=== PATIENT | male | born 1980 | race Caucasian/White ===

== ENCOUNTER 2018-02-06 20:09 | Emergency (ER) | payer BC, OTHER ==
--- NOTE | 2018-02-06 21:04 | ED ---
Upper Extremity Pain - HPI Summary HPI Summary: 37 yr old male with the complaint of left thumb pain. Onset of pain was two weeks ago when he jammed his thumb falling on the ice and hit it head on. He had pain and bruising over the distal left thumb. Tonight his putter hit his left thumb when putting it in the golf bag. Pain is moderate. No other complaints. - History of Current Complaint Chief Complaint: UCUpperExtremity Stated Complaint: LEFT THUMB PAIN Time Seen by Provider: 02/06/18 20:35 - Allergies/Home Medications Allergies/Adverse Reactions: Allergies Allergy/AdvReac Type Severity Reaction Status Date / Time No Known Allergies Allergy Verified 02/06/18 20:30 Home Medications: Home Medications NK [No Home Medications Reported] 02/06/18 [History Confirmed 02/06/18] PMH/Surg Hx/FS Hx/Imm Hx Infectious Disease History: No Infectious Disease History: Denies: Traveled Outside the [place] in Last 30 Days - Family History Known Family History: Positive: None - Social History Occupation: Employed Full-time Lives: With Family Alcohol Use: Daily Alcohol Amount: 1-2 DRINKS/DAY Substance Use Type: Reports: None Smoking Status (MU): Never Smoked Tobacco Review of Systems Positive: Other - thumb pain All Other Systems Reviewed And Are Negative: Yes Physical Exam Triage Information Reviewed: Yes Vital Signs On Initial Exam: Initial Vitals Temp Pulse Resp BP Pulse Ox 98.3 F 67 16 129/80 99 02/06/18 20:30 02/06/18 20:30 02/06/18 20:30 02/06/18 20:30 02/06/18 20:30 Vital Signs Reviewed: Yes Appearance: Positive: Well-Appearing, No Pain Distress Skin: Positive: Warm, Skin Color Reflects Adequate Perfusion Head/Face: Positive: Normal Head/Face Inspection Eyes: Positive: EOMI ENT: Positive: Normal ENT inspection Respiratory/Lung Sounds: Positive: Clear to Auscultation, Breath Sounds Present , Other - normal effort Cardiovascular: Positive: RRR, Pulses are Symmetrical in both Upper and Lower Extremities - left wrist normal pulse.. Negative: Murmur Abdomen Description: Negative: Distended Musculoskeletal: Positive: Other - left thumb is without bruising, no deformity , but he does have tenderness over the left distal phalynx of the thumb. ROM is intact left thumb. No tenderness at the base of the thumb. Neurological: Positive: Sensory/Motor Intact, Alert, Oriented to Person Place, Time, CN Intact II-III Psychiatric: Positive: Normal AVPU Assessment: Alert - Slade Coma Scale Best Eye Response: 4 - Spontaneous Best Motor Response: 6 - Obeys Commands Best Verbal Response: 5 - Oriented Coma Scale Total: 15 Procedures - Splinting Location: left thum Pre-Made Type: metal Splint: foam metal volar and dorsal wrap around splint applied Pre-Proc Neuro Vasc Exam: normal Post-Proc Neuro Vasc Exam: normal Diagnostics - Vital Signs Vital Signs Temp Pulse Resp BP Pulse Ox 02/06/18 20:30 98.3 F 67 16 129/80 99 - Laboratory Lab Statement: Any lab studies that have been ordered have been reviewed, and results considered in the medical decision making process. - Radiology left thumb Xray Interpretation: Positive (See Comments) - fracture thumb distal phalynx impacted. Radiology Interpretation Completed By: Radiologist Course/Dx - Course Course Of Treatment: 37 yr old male with thumb pain, fracture distal phalynx. Plan foam metal splint applied to thumb. Follow up with ortho. - Diagnoses Provider Diagnoses: Fracture of thumb, closed, Impacted fracture Discharge - Sign-Out/Discharge Documenting (check all that apply): Discharge/Admit/Transfer - Discharge Plan Condition: Good Disposition: HOME Patient Education Materials: Thumb Fracture (ED) Referrals: No Primary Care Phys,NOPCP [Primary Care Provider] - Simone Sanchez MD [Medical Doctor] - 1 Day - Billing Disposition and Condition Condition: GOOD Disposition: HOME
--- NOTE | 2018-02-06 21:15 | RAD ---
Indication: LEFT thumb pain following jamming injury 2 weeks ago. Tenderness at the IP joint. Comparison: No relevant prior exams available on the [facility] [place] [facility] [place]. Technique: AP, lateral, and oblique views LEFT thumb. REPORT AND IMPRESSION: Minimally impacted fracture at the base of the distal phalanx with suggestion of intra-articular extension. Negative for significant articular surface discontinuity or incongruity. Soft tissue swelling most prominent at the IP joint and distal.
== END 2018-02-06 21:54 | disposition home or self-care (01) ==
LOC: UCCORT 20:09
DX: S62.525A Nondisplaced fracture of distal phalanx of left thumb, initial encounter for closed fracture (principal); W23.0XXA Caught, crushed, jammed, or pinched between moving objects, initial encounter; Y93.9 Activity, unspecified; Y92.9 Unspecified place or not applicable
CPT/HCPCS: 99201; G0463

== ENCOUNTER 2018-02-22 19:48 | Emergency (ER) | payer OTHER ==
[2018-02-22] MEDS ORDERED: Lidocaine 1%* 5 ML VIAL INJ ONE (19:58)
--- NOTE | 2018-02-22 20:00 | UC ---
Laceration HPI - HPI Summary HPI Summary: Patient presents with a laceration to the base of his great toe on the sole of his foot. Patient was helping a friend outside. Patient was in bare feet when he stepped on a tool used to Mill concrete. Patient states he washed with water and bandaged prior to coming. Patient without any other concerns. Patient states initially pain was vital he had a temperature currently 1 out of 10. No paresthesias. Not renal compromise. Patient does not know his last tetanus was. No analgesic taken prior to arrival Medications medications reviewed this visit - History Of Current Complaint Stated Complaint: LEFT FOOT LACERATION Time Seen by Provider: 02/22/18 19:57 Hx Obtained From: Patient Laceration Location: Foot Mechanism Of Injury: Sharp Trauma Onset/Duration: Sudden Onset Severity: Mild Pain Scale Used: 0-10 Numeric - Allergies/Home Medications Allergies/Adverse Reactions: Allergies Allergy/AdvReac Type Severity Reaction Status Date / Time No Known Allergies Allergy Verified 02/06/18 20:30 Home Medications: Home Medications Cetirizine* [ZyrTEC 10 MG TAB*] 10 mg PO DAILY 02/22/18 [History Confirmed 02/22] PMH/Surg Hx/FS Hx/Imm Hx Previously Healthy: Yes - Surgical History Surgical History: None - Family History Known Family History: Positive: None - Social History Occupation: Employed Full-time Lives: With Family Alcohol Use: Daily Alcohol Amount: 1-2 DRINKS/DAY Substance Use Type: None Smoking Status (MU): Never Smoked Tobacco Review of Systems Constitutional: Negative Skin: Other - Laceration All Other Systems Reviewed And Are Negative: Yes Physical Exam - Summary Physical Exam Summary: Vital Signs Reviewed: Yes A+Ox3, no distress Eyes: Conjunctiva Clear ENT: Hearing grossly normal neck: supple Respiratory: Positive: No respiratory distress, No accessory muscle use Cardiovascular: skin color reflect adequate perfusion Musculoskeletal Exam: QUILES x 4 without difficulty + great toe extension Neurological: Positive: Alert, + gross sensation throughout Psychological: Positive: Normal Response To Family Skin: Positive: no rash, no ecchymosis pt with 2cm laceration sole of foot over ball of foot base of great toe Triage Information Reviewed: Yes Laceration Repair - Laceration Repair 1 Procedure Summary: Verbal consent given for repair Time out conducted with nurse in the room Area prepped in sterile fashion Patient tolerated well Sudden symptoms infection patient Reviewed wound care with patient Strict return precautions discussed Description: Linear Laceration Size After Repair: Length (cm) - 2 Modified For Repair: No Type Injection: Local Anesthesia Used: 1.0% Lido - 2.5ml Cleansing Completed Via Routine Prep: Yes Irrigation With Pressure Irrigation Device: Yes Closure Material: Sutures - 500ml irrigation with pressure device simple interrupted good approximation 3 simple interrupted Suture Of: Skin Suture Type: Nylon - 50 Laceration Course/Dx - Course/Dx Course Of Treatment: Patient presents with 2 cm laceration to the sole left foot over the ball after stepping on a construction total outside. Wound copiously irrigated. 3 simple interrupted sutures placed patient tolerated well. Reviewed wound care, signs and symptoms of infection. Given tetanus. Started on Keflex. Crutches - Differential Dx - Laceration/Wound Provider Diagnoses: Laceration left foot. Tetanus booster Discharge - Sign-Out/Discharge Documenting (check all that apply): Discharge/Admit/Transfer - Discharge Plan Condition: Stable Disposition: HOME Prescriptions: Cephalexin CAP* [Keflex 500 CAP*] 500 mg PO TID #21 cap Patient Education Materials: Diphtheria/Pertussis/Tetanus Vaccine (By injection ), Laceration (ED) Referrals: No Primary Care Phys,NOPCP [Primary Care Provider] - Additional Instructions: - your stitches should come out in 8-10 days - you can return here, go to your Doctor or any urgent care center - okay to alternate ibuprofin (advil, motrin) and tylenol every 3hours as needed for pain -take antibiotics as prescribed until gone -Anticipate increased discomfort over the next several hours as the numbing medication wears off -Keep your wound clean and dry - no soaking for 24 hours. Then, okay for wound to get wet - pat dry, don't rub -apply a thin layer of antibiotic ointment (neosporin, polysporin) 2-3 times a day - when you have a cut, you will have a scar. To minimize scar formation - keep your wound clean - monitor for signs of infection - reddness, red streaking, odor, green drainage - your arm will be sore from your tetanus tomorrow- this is normal for 1-2 days after a tetanus vaccination - use crutches until you can walk normally without a limp - Contact your doctor or return here with questions or concerns - Billing Disposition and Condition Condition: STABLE Disposition: Home
[2018-02-22] MEDS ORDERED: Tetan/Diph/Pertus SYR(Tdap)* 0.5 ML SYR(BOOSTRIX) use SYR IM ONE (20:49)
[2018-02-22] MEDS ORDERED: Ibuprofen TAB* 600 MG PO ONE (20:50)
[2018-02-22] MEDS ORDERED: Cephalexin CAP* 500 MG PO ONE (21:19)
== END 2018-02-22 21:45 | disposition home or self-care (01) ==
LOC: UCCORT 19:48
DX: S91.312A Laceration without foreign body, left foot, initial encounter (principal); Z23 Encounter for immunization; W22.8XXA Striking against or struck by other objects, initial encounter; Y92.9 Unspecified place or not applicable
CPT/HCPCS: 12001; 90471; 90715; 99213; A9270-GY; G0463